=== PATIENT | male | born 1985 | race Caucasian/White ===

== ENCOUNTER 2019-12-22 08:44 | Day surgery (SDC) | payer OTHER ==
[~2019-12-22] VITALS: Ht 172.7 cm; Wt 121.0 kg
[~2019-12-22 08:44] MED LIST: SODIUM CHLORIDE 0.9% 1,000 ML IV ONE; SODIUM CHLORIDE 0.9% 1,000 ML ONE
[2019-12-22] MEDS ORDERED: LIDOCAINE/PF 2% 5 ML SYRINGE IVP ONE (08:45)
[2019-12-22] MEDS ORDERED: PROPOFOL 1% 20 ML VIAL IVP ONE (08:45)
[2019-12-22] MEDS ORDERED: ATOR20TA86 PO (09:03)
[2019-12-22] MEDS ORDERED: LISI-661 PO (09:03)
[2019-12-22] MEDS ORDERED: KETAMINE HCL 50 MG/ML 10 ML VIAL ONE (10:44)
== END 2019-12-22 12:00 | disposition home or self-care (01) ==
LOC: SURGERY 08:44
PROVIDERS: ATTEND Student in an Organized Health Care Education/Training Program
DX: K29.50 Unspecified chronic gastritis without bleeding (principal); B96.81 Helicobacter pylori [H. pylori] as the cause of diseases classified elsewhere; K25.9 Gastric ulcer, unspecified as acute or chronic, without hemorrhage or perforation; K44.9 Diaphragmatic hernia without obstruction or gangrene; K31.89 Other diseases of stomach and duodenum; F17.210 Nicotine dependence, cigarettes, uncomplicated; K21.0 Gastro-esophageal reflux disease with esophagitis; E66.9 Obesity, unspecified
CPT/HCPCS: 43239; 87635; 88305; 88312; 88313; C1769; J2704; J3490 ×2; J7030